=== PATIENT | male | born 1960 | race Caucasian/White ===

== ENCOUNTER 2022-04-09 17:20 | Inpatient (IN) | payer OTHER ==
[2022-04-09] VITALS (245 sets, daily range): BP systolic 107; BP diastolic 68; PULSE 124; TEMP 99; O2SAT 92–100
[~2022-04-09] VITALS: Ht 182.9 cm; Wt 84.6 kg
[~2022-04-09 17:20] MED LIST: HCTZ 25MG TAB25 MG PO
[2022-04-09 18:03] LABS: STOOL FOR OCCULT BLOOD NEGATIVE (NEGATIVE)
[2022-04-09 18:11] LABS: HEMOGLOBIN 10.3 g/dl (13.5-18.0); MEAN CELL VOLUME 101 fl (80.0-100.0); MEAN CORPUSCULAR HEMOGLOBIN 33 pg (27-31); MEAN CORPUSCULAR HGB CONC 33 g/dl (33.0-37.0); MEAN PLATELET VOLUME 9.5 fl (7.4-10.4); PLATELET COUNT 197 K/mm3 (130-400); RED BLOOD COUNT 3.11 M/mm3 (4.20-5.60); REDCELL DISTRIBUTION WIDTH-CV 13.5 % (11.5-14.5)
[2022-04-09 18:14] LABS: HEMATOCRIT 31.4 % (42.0-52.0)
[2022-04-09 18:16] LABS: INR 1.1 (0.8-3.0)
[2022-04-09 18:22] LABS: ALBUMIN 2.5 gm/dL (3.4-4.8); BILIRUBIN,TOTAL 1.2 mg/dL (0.2-1.2); C-REACTIVE PROTEIN 8.08 mg/dL (0.00-0.50); CALCIUM 8.9 mg/dL (8.4-10.2); CREATININE, serum 1.38 mg/dL (0.72-1.25); POTASSIUM 5.4 mmol/L (3.5-4.5); TOTAL PROTEIN 6.3 gm/dL (6.2-8.1)
[2022-04-09 18:27] LABS: TROPONIN-I 0.011 ng/mL (0.00-0.033)
[2022-04-09 18:47] LABS: BAND 27 % (0-10); LYMPHOCYTE 11 % (20.0-51.0); METAMYELOCYTE 6 % (0-0); MYELOCYTE 1 % (0-0); NEUTROPHILS 51 % (42.0-75.2)
[2022-04-09 18:49] LABS: ANISOCYTOSIS 1+; HYPOCHROMIA 1+; PLATELET ESTIMATE NORMAL (NORMAL)
[2022-04-09 19:05] LABS: ARTERIAL BLD GAS O2 SATURATION 98.5 % (92-100); ARTERIAL BLOOD GAS BASE EXCESS -10.9 (-2-2); ARTERIAL BLOOD GAS HCO3 13.3 meq/L (22-26); ARTERIAL BLOOD GAS PCO2 24.8 mmHg (35-45); ARTERIAL BLOOD GAS pH 7.35 (7.35-7.45)
[2022-04-09 19:06] LABS: ARTERIAL BLOOD GAS PO2 149.1 mmHg (80-100)
[2022-04-09] MEDS ORDERED: PLAVIX 75MG TAB75 MG PO (19:36)
[2022-04-09] MEDS ORDERED: LAMICTAL200 MG PO (19:38)
--- NOTE | 2022-04-09 19:55 | NUR ---
PT ARRIVED ON UNIT. PT IS ALERT AND ORIENTED. PT IS TACHYCARDIC IN THE 120S. PT FOLLOWS COMMANDS AND ANSWERS QUESTIONS APPROPRIATELY. PTS CALL LIGHT WITHIN REACH.
[2022-04-09 22:36] LABS: CALCIUM 7.2 mg/dL (8.4-10.2); CREATININE, serum 1.03 mg/dL (0.72-1.25); POTASSIUM 4.4 mmol/L (3.5-4.5)
--- NOTE | 2022-04-09 23:15 | NUR ---
LAB CALLED WITH PTS GLUCOSE RESULTING AT 49. ASSESSED PT AT THE BEDSIDE AND RECHECKED SUGAR. SUGAR READ 60. PT STATES HE FEELS FINE AND IS NOT EXPERIENCING SYMPTOMS. WILL REASSESS SUGAR IN APPROXIMATELY 30 MINUTES.
--- NOTE | 2022-04-09 23:34 | NUR ---
BLOOD GLUCOSE UPON RECHECK WAS 94.
[2022-04-10] VITALS (594 sets, daily range): BP systolic 94–140; BP diastolic 47–61; PULSE 56–99; TEMP 97.2–98.8; O2SAT 81–100
[2022-04-10 02:25] LABS: CALCIUM 7.1 mg/dL (8.4-10.2); CREATININE, serum 0.89 mg/dL (0.72-1.25); POTASSIUM 4.6 mmol/L (3.5-4.5)
[2022-04-10 05:12] LABS: CREATININE, serum 0.84 mg/dL (0.72-1.25); POTASSIUM 4.5 mmol/L (3.5-4.5)
[2022-04-10 05:39] LABS: MEAN CORPUSCULAR HGB CONC 35 g/dl (33.0-37.0); MEAN PLATELET VOLUME 9.3 fl (7.4-10.4); RED BLOOD COUNT 2.41 M/mm3 (4.20-5.60); REDCELL DISTRIBUTION WIDTH-CV 13.6 % (11.5-14.5)
[2022-04-10 05:45] LABS: HEMOGLOBIN 8.1 g/dl (13.5-18.0); MEAN CELL VOLUME 95 fl (80.0-100.0); MEAN CORPUSCULAR HEMOGLOBIN 34 pg (27-31); PLATELET COUNT 74 K/mm3 (130-400)
[2022-04-10 06:09] LABS: BAND 8 % (0-10); LYMPHOCYTE 11 % (20.0-51.0); NEUTROPHILS 69 % (42.0-75.2); PLATELET ESTIMATE DECREASED (NORMAL)
[2022-04-10] MEDS ORDERED: ASPIRIN 32325 MG/TAB PO (09:17)
[2022-04-10] MEDS ORDERED: HCTZ 25MG TAB25 MG PO (09:18)
[2022-04-10] MEDS ORDERED: PRINIVIL10 MG PO (09:19)
[2022-04-10] MEDS ORDERED: MULTI VITAMINS1 TAB PO (09:19)
[2022-04-10] MEDS ORDERED: IBU400 MG PO (09:19)
[2022-04-10] MEDS ORDERED: NATURE'S BLEND100 M2 PO (09:20)
--- NOTE | 2022-04-10 21:27 | NUR ---
Patient assessed around 2014. Denied having pain and discomfort. Denies SOB an dyspnea. LS CTA. HRR. BSAx4. Continues on IV fluids and ABX per orders. Voices no questions, needs, or concerns at this time. In bed with call light within reach.
[2022-04-11 03:04] VITALS: BP 94/52; PULSE 83; TEMP 98.1
[2022-04-11 03:49] LABS: COLLECTION METHOD CLEAN CATCH
[2022-04-11 04:07] LABS: URINE APPEARANCE Clear (CLEAR/HAZY); URINE BLOOD Negative (NEGATIVE); URINE COLOR Yellow (YELLOW); URINE GLUCOSE Negative (NEGATIVE); URINE KETONE Negative (NEGATIVE); URINE NITRATE Negative (NEGATIVE); URINE PROTEIN(semi-quant) Negative (NEGATIVE); URINE UROBILINOGEN 0.2 E.U/dL (0.2-1.0)
[2022-04-11 04:11] LABS: MUCOUS Present (NOT PRESENT); SQUAMOUS EPITHELIAL None Seen /hpf (0-10); URINE BACTERIA None Seen /hpf (NONE SEEN); URINE RBC None Seen /hpf (0-2)
[2022-04-11 04:21] LABS: TRICYCLIC ANTIDEPRESS URINE NEGATIVE
--- NOTE | 2022-04-11 05:50 | NUR ---
Remains on room air. Continues on IV fluids per orders. Voices no questions, needs, or concerns at this time. In bed with call light within reach.
[2022-04-11 06:57] LABS: MEAN CELL VOLUME 97 fl (80.0-100.0); MEAN CORPUSCULAR HGB CONC 35 g/dl (33.0-37.0); MEAN PLATELET VOLUME 9.5 fl (7.4-10.4); PLATELET COUNT 103 K/mm3 (130-400); RED BLOOD COUNT 2.14 M/mm3 (4.20-5.60); REDCELL DISTRIBUTION WIDTH-CV 14.2 % (11.5-14.5)
[2022-04-11 07:01] LABS: HEMATOCRIT 20.8 % (42.0-52.0); HEMOGLOBIN 7.2 g/dl (13.5-18.0); MEAN CORPUSCULAR HEMOGLOBIN 34 pg (27-31)
[2022-04-11 07:14] LABS: ALBUMIN 1.9 gm/dL (3.4-4.8); BILIRUBIN,TOTAL 0.6 mg/dL (0.2-1.2); C-REACTIVE PROTEIN 5.44 mg/dL (0.00-0.50); CALCIUM 7.6 mg/dL (8.4-10.2); CREATININE, serum 0.76 mg/dL (0.72-1.25); PHOSPHOROUS 2.7 mg/dL (2.3-4.7); POTASSIUM 4.3 mmol/L (3.5-4.5); TOTAL PROTEIN 4.6 gm/dL (6.2-8.1)
[2022-04-11 08:06] LABS: BAND 16 % (0-10); LYMPHOCYTE 15 % (20.0-51.0); NEUTROPHILS 65 % (42.0-75.2); PLATELET ESTIMATE DECREASED (NORMAL)
[2022-04-11 08:14] VITALS: BP 100/71; PULSE 87; TEMP 98.2
--- NOTE | 2022-04-11 09:38 | NUR ---
The patient is in droplet isolation for COVID-19. SW contacted the patient to discuss discharge plan. The patient lives alone in [place]. He reports needing some help with ADLs and does not have any DME. He states that he manages at home on his own. The patient receives primary care from a female provider at the [facility]. He could not recall her name. He receives his medications from the [facility]. The patient does not have a DPOA-HC and he was not interested in completing one at this time. He states that he has no one. He reports that he is not , does not have any children, and his parents are . He states that he has three siblings, but has no idea where they are or if they are even still alive. He has no contact with them. SW educated him on the importance of a DPOA-HC and what could happen if he does not have one. The patient stated, "I don't have anyone, so I do not care if someone I do not know, has to make my decisions." The patient plans to return home upon discharge. He states that he has a high school social studies teacher through the [employer] that may be able to transport him home. PT recommends home. *Discharge plan: home*
--- NOTE | 2022-04-11 10:12 | NUR ---
PATIENT ALERT AND ORIENTED X3. FLUIDS DISCONTINUED. SCDS PUT ON. PATIENT ON ARIXTRA FOR VTE. IV TO LEFT FOREARM. IV ANTIBIOTICS. NO NEW CONCERNS.
[2022-04-11 12:37] VITALS: BP 98/50; PULSE 107; TEMP 98.2
[2022-04-11 15:13] VITALS: BP 107/53; PULSE 106; TEMP 98.4
[2022-04-11 19:31] VITALS: BP 120/72; PULSE 84; TEMP 98.7
--- NOTE | 2022-04-11 22:20 | NUR ---
Patient assessed around 1929. On room air. Recieved IV ABX per orders. Denies SOB and dyspnea. LS CTA. Voices no questions, needs, or concerns at this time. In bed with call light within reach.
[2022-04-11 23:05] VITALS: BP 108/51; PULSE 107; TEMP 98.6
[2022-04-12 03:30] VITALS: BP 111/61; PULSE 90; TEMP 98.3
--- NOTE | 2022-04-12 05:43 | NUR ---
Remains on room air. Denies pain and discomfort. Voices no questions, needs, or concerns at this time. In bed with call light within reach.
[2022-04-12 07:17] LABS: MEAN CELL VOLUME 98 fl (80.0-100.0); MEAN CORPUSCULAR HGB CONC 34 g/dl (33.0-37.0); MEAN PLATELET VOLUME 9.8 fl (7.4-10.4); PLATELET COUNT 110 K/mm3 (130-400); RED BLOOD COUNT 2.28 M/mm3 (4.20-5.60); REDCELL DISTRIBUTION WIDTH-CV 14.6 % (11.5-14.5)
[2022-04-12 07:20] LABS: HEMATOCRIT 22.4 % (42.0-52.0); HEMOGLOBIN 7.5 g/dl (13.5-18.0); MEAN CORPUSCULAR HEMOGLOBIN 33 pg (27-31)
[2022-04-12 07:31] LABS: ALBUMIN 2.2 gm/dL (3.4-4.8); BILIRUBIN,TOTAL 0.8 mg/dL (0.2-1.2); CALCIUM 8.2 mg/dL (8.4-10.2); CREATININE, serum 0.78 mg/dL (0.72-1.25); PHOSPHOROUS 2.5 mg/dL (2.3-4.7); POTASSIUM 3.9 mmol/L (3.5-4.5); TOTAL PROTEIN 5.3 gm/dL (6.2-8.1)
[2022-04-12] MEDS ORDERED: DECADRON6 MG PO (09:06)
[2022-04-12] MEDS ORDERED: PROAIR HFA0.09 MG/AC IH (09:06)
[2022-04-12] MEDS ORDERED: DOXYCYCLINE 10100 MG PO (09:07)
[2022-04-12] MEDS ORDERED: CEFTIN500 MG PO (09:07)
[2022-04-12 09:13] LABS: BAND 2 % (0-10); LYMPHOCYTE 22 % (20.0-51.0); NEUTROPHILS 73 % (42.0-75.2)
[2022-04-12 09:14] LABS: PLATELET ESTIMATE DECREASED (NORMAL)
--- NOTE | 2022-04-12 09:26 | NUR ---
The hospitalist notified [facility] that he is ready to discharge the patient today. [facility] contacted the patient to follow up about transportation. The patient states that he is talking to his [facility] [employer] senior associate, Dia, and that she will be his ride. He will ask her to be here around [phone]. [facility] updated the patient's RN. No additional needs at this time.
--- NOTE | 2022-04-12 10:53 | NUR ---
Pt A&O x 4, VSS, denies pain. Pt on RA, exercise Ox complete, no O2 needed. Prior to removing telemetry, pt RSR 80's. D/C IV x 2 to L arm, complete/intact. Discussed d/c instructions, pt reports understanding. States that [facility] only [facility] so will not have new meds for several days. Reports that he does not use any local pharmacies. Pt is escorted from facility via WC by staff.
== END 2022-04-12 12:30 | disposition home or self-care (01) | DRG 871 ==
LOC: COL.ER 17:20 → ICU 18:36 → MEDICAL 18:36
PROVIDERS: Emergency Medicine; Family Medicine; Internal Medicine; Internal Medicine Sleep Medicine; Student in an Organized Health Care Education/Training Program; ADMIT Hospitalist
DX: A41.89 Other specified sepsis (principal); J96.01 Acute respiratory failure with hypoxia; U07.1 COVID-19; E87.20 Acidosis, unspecified; N17.9 Acute kidney failure, unspecified; E87.1 Hypo-osmolality and hyponatremia; Z66 Do not resuscitate; F10.139 Alcohol abuse with withdrawal, unspecified; F41.9 Anxiety disorder, unspecified; I95.9 Hypotension, unspecified; G40.909 Epilepsy, unspecified, not intractable, without status epilepticus; E87.5 Hyperkalemia; E86.1 Hypovolemia; F32.A Depression, unspecified; K76.9 Liver disease, unspecified; E86.0 Dehydration; R73.9 Hyperglycemia, unspecified; Z79.82 Long term (current) use of aspirin; Z79.02 Long term (current) use of antithrombotics/antiplatelets; Z87.891 Personal history of nicotine dependence
CPT/HCPCS: J0610; J0696; J1644; J1652; J1815; J1940; J3411; J7030; J8540; Q9967